=== PATIENT | female | born 1965 | race Caucasian/White ===

== ENCOUNTER → 2017-05-01 | Outpatient (CLI) | payer OTHER ==
--- NOTE | 2017-05-01 15:45 | KCIC ---
Bilateral digital screening mammogram History: 51-year-old female presents for baseline screening mammogram. Comparison: None, baseline exam. Findings: Breast Tissue Density A : The breasts are almost entirely fatty. Bilateral digital mammogram images are obtained with CAD. A round, low-density masses seen within the lateral right breast at mid depth, not definitively seen on the MLO view. Subcentimeter, round and oval, low-density masses are seen within the central/3:00 position and upper outer quadrant of the left breast at mid depth. While these may represent intramammary lymph nodes, further evaluation is warranted given lack of a comparison. Otherwise, no suspicious masses, architectural distortion, or grouped microcalcifications are identified. Impression: Recommend bilateral diagnostic mammography, with ultrasound as indicated, for further evaluation of bilateral, subcentimeter masses. BI-RADS Category 0: Incomplete: Need additional imaging evaluation. Electronically signed by: Gia Myers MD (05/01/2017 3:42 PM) [facility]
== END | disposition home or self-care (01) ==
LOC: KCIC MAMMO 13:48
PROVIDERS: ATTEND Family Medicine
DX: Z12.31 Encounter for screening mammogram for malignant neoplasm of breast (principal)
CPT/HCPCS: G0202; 77067

== ENCOUNTER → 2017-05-22 | Outpatient (CLI) | payer OTHER ==
--- NOTE | 2017-05-22 11:17 | KCIC ---
DATE: May 22, 2017 EXAM: DIGITAL DIAGNOSTIC BILATERAL, BREAST BILATERAL HISTORY: Abnormal baseline screening study COMPARISON: May 01, 2017 TECHNIQUE: Spot compression CC and MLO views of each breast were obtained. Limited ultrasound of each breast was performed. FINDINGS: The breast parenchyma demonstrates scattered fibroglandular densities, category B. The 3 nodules noted on prior screening study, one in the outer right breast, one in the upper outer left breast, and one centrally in the left breast, are all persistent on compression views. Probable fatty notches are noted on these compression views. Ultrasound of each breast could not identify any of these probable lymph nodes. No worrisome mass or area of architectural distortion by ultrasound is apparent. IMPRESSION: Probably benign findings within each breast. BI-RADS CATEGORY: 3 PROBABLE BENIGN-SHORT TERM F/U RECOMMENDED FOLLOW-UP: 6M 6 MONTH FOLLOW-UP As the probable lymph nodes are not visible by ultrasound, 6 month follow-up will be diagnostic bilateral mammogram. PQRS compliance statement: Patient information was entered into a reminder system with a target due date for the next mammogram. Mammography is a sensitive method for finding small breast cancers, but it does not detect them all and is not a substitute for careful clinical examination. A negative mammogram does not negate a clinically suspicious finding and should not result in delay in biopsying a clinically suspicious abnormality. "Our facility is accredited by the [employer] Mammography [employer]."
== END | disposition home or self-care (01) ==
LOC: KCIC MAMMO 09:42
PROVIDERS: ATTEND Family Medicine
DX: R92.8 Other abnormal and inconclusive findings on diagnostic imaging of breast (principal)
CPT/HCPCS: 76641; G0204; 77066

== ENCOUNTER → 2018-05-09 | Outpatient (CLI) | payer OTHER ==
--- NOTE | 2018-05-09 17:16 | KCIC ---
Bilateral diagnostic digital mammograms: Reason for examination: Follow-up nodules. Comparison is made to previous studies dated 05/22/2017 and 05/01/2017. Interpretation was made with the benefit of CAD. The skin and nipples show no abnormalities. No abnormal axillary lymph nodes are seen. The breast parenchyma shows scattered fibroglandular density. (Breast density: Category B.) There continue to be small nodular parenchymal densities bilaterally which are unchanged. There are no new dominant masses, suspicious calcifications or architectural distortions. Impression: Continued presence of small nodular densities bilaterally without change. Ultrasound to follow. BI-RADS Category 0: Incomplete. Needs additional imaging evaluation. Left breast ultrasound: Comparison is made to previous study dated 05/22/2017. Ultrasound examination of the left breast was performed with attention to the areas of mammographic concern and the left axilla. No discrete cystic or solid nodules are identified. No abnormal appearing lymph nodes are seen in the axilla. IMPRESSION: No focal lesions seen in the left breast. Recommend routine mammographic follow-up. BI-RADS Category 2: Benign. "Our facility is accredited by the [employer] Mammography Program." This patient's information has been entered into a reminder system for the patient to be notified with the results of her examination and a target date for the next mammogram. Electronically signed by: Aubree Fraga MD (05/09/2018 5:12 PM) [facility]
== END | disposition home or self-care (01) ==
LOC: KCIC MAMMO 12:35
PROVIDERS: ATTEND Family Medicine
DX: R92.8 Other abnormal and inconclusive findings on diagnostic imaging of breast (principal)
CPT/HCPCS: 76641; 77066

== ENCOUNTER → 2019-09-19 | Outpatient (CLI) | payer OTHER ==
--- NOTE | 2019-09-19 13:05 | KCIC ---
HIP RIGHT 2 VIEW History: Right hip pain for 3 or 4 months. No known injury.. No evidence of acute fracture. No aggressive bone destruction. Right hip joint spaces intact. Mild degenerative change may be present at the right sacroiliac joint. No significant soft tissue abnormality. IMPRESSION: No evidence of acute radiographic abnormality. Consider MR of the hip for further evaluation, as indicated. Electronically signed by: Bradly Clement MD (09/19/2019 1:02 PM) [facility]
== END ==
LOC: KCIC 12:30
PROVIDERS: ATTEND Family Medicine
DX: M25.551 Pain in right hip (principal)
CPT/HCPCS: 73502

== ENCOUNTER 2021-06-14 23:38 | Emergency (ER) | payer SELFPAY ==
[~2021-06-14] VITALS: Ht 160 cm; Wt 93.8 kg
--- NOTE | 2021-06-15 03:46 | PHYS DOC ---
General Adult EDM: Chief Complaint: COUGH HPI: HPI: Patient is a 55 year old female who presents here with multiple complaints. She reports malaise, myalgias, fatigue, dry cough with gagging, nausea, diarrhea. She denies chest pain. She reports mild dyspnea. She has had some subjective fevers and chills. She was diagnosed with COVID-19 infection within the last 6 days. She had had symptoms for about 3-4 days prior to that. Tonight, she reports increased fatigue and malaise, diffuse body aches, and noticed some significant hyperglycemia. Her glucometer at home read "high." She reports that she has been drinking water. She reports that she has been eating, though not as much as usual. She denies taking any pain medicine or antipyretics today. She has not been vaccinated against COVID-19. She reports that she was "planning on it" before she got sick. She admits that she has chronically poorly controlled diabetes, frequent episodes of significant hyperglycemia. She has failed multiple oral hypoglycemic agent regimens, and she is currently taking weekly Trulicity and Lantus. She has not been seen by an crushed stone grader. She reports that her last hemoglobin A1c was over 10, she believes. Review of Systems: Review of Systems: Constitutional: Fevers, chills, myalgias, malaise and fatigue Eyes: Denies change in visual acuity. [] HENT: Nasal congestion. Denies sore throat Respiratory: Dry cough, mild dyspnea. No hemoptysis, no dyspnea with exertion Cardiovascular: Denies chest pain or edema. [] GI: Denies abdominal pain, reports nausea, vomiting/gagging, reports diarrhea. : Denies dysuria, urgency, hematuria. She does report urinary frequency. Musculoskeletal: Denies back pain or joint pain. He does report diffuse myalg ias. Integument: Denies rash. [] Neurologic: She does report a headache. Denies dizziness, vertigo, focal weakness, numbness or tingling or syncope Endocrine: Polyuria symptoms, hyperglycemia] Lymphatic: Denies swollen glands. [] Psychiatric: Denies depression or anxiety. [] Heart Score: C/O Chest Pain: No Risk Factors: Risk Factors: DM, Current or recent (<one month) smoker, HTN, HLP, family history of CAD, obesity. Risk Scores: Score 0 - 3: 2.5% MACE over next 6 weeks - Discharge Home Score 4 - 6: 20.3% MACE over next 6 weeks - Admit for Clinical Observation Score 7 - 10: 72.7% MACE over next 6 weeks - Early Invasive Strategies Physical Exam: PE: Constitutional: Well developed, well nourished, no acute distress, non-toxic appearance. [] HENT: Normocephalic, atraumatic, oropharynx is patent and clear, mucous membranes are moist Eyes: Sclera are clear and anicteric Neck: Normal range of motion, no tenderness, supple, no stridor. Trachea is midline, no meningismus Cardiovascular: Tachycardic, regular, rate 110s, +2 radial and +2 posterior tibial pulses bilaterally Lungs & Thorax: Bilateral breath sounds clear to auscultation [] Abdomen: Abdomen is soft, nondistended, nontender to palpation, normal bowel sounds, no palpable masses organomegaly, no CVA tenderness Skin: Warm, dry, no erythema, no rash. [] Back: No tenderness, no CVA tenderness. [] Extremities: No tenderness, no cyanosis, no clubbing, ROM intact, no edema. No calf tenderness Neurologic: She is awake, alert, conversant, no facial asymmetry, normal motor strength, ambulatory with a steady gait, speech is clear and fluent Psychologic: Affect normal, judgement normal, mood normal. She is pleasant and cooperative. EKG: EKG: EKG is interpreted at 0535 Rhythm is sinus tachycardia Rate is 108 bpm [place] is normal No STEMI Radiology/Procedures: Radiology/Procedures: IMAGING REPORT Signed PATIENT: LUCAS CHATMAN MACCOUNT: [id number] : 06/22/1955 LOCATION: ER AGE: 65 SEX: F EXAM STATUS: REG ER ORD. PHYSICIAN: GALE DYKES DO REASON: covid, cough, vomiting PROCEDURE: PORTABLE CHEST 1V EXAM: AP View of the chest DATE: 06/15/2021 3:51 AM INDICATION: Reason: covid, cough, vomiting / Spl. Instructions: / History: COMPARISON: No Prior FINDINGS: The heart is not enlarged. Mediastinal and hilar contours are normal. Patchy opacities peripheral left lower lung. No pleural effusion or pneumothorax. IMPRESSION: Patchy opacities peripheral left lower lung, likely consolidative process or atelectasis. Electronically signed by: Alec Shah MD (06/15/2021 4:28 AM) [facility] DI[facility] and SIGNED BY: ALEC SHAH MD DATE: 06/15/21 [id number] Course & Med Decision Making: Course & Med Decision Making Pertinent Labs and Imaging studies reviewed. (See chart for details) The patient is given 2 L of IV normal saline. She is given subcutaneous regular insulin. Her blood sugar is now down to 372. She is given Zofran for nausea. She is given Toradol for her chronic lower extremity pain. She is resting very comfortably. Vital signs are stable. She manifests no evidence of distress or hypoxia. Her nausea and vomiting is now resolved. She is able to tolerate oral fluids without difficulty. I have discussed all of the findings, differential diagnosis and plan of care with her. She manifests no evidence of hypoxia, she has evidence of very mild Covid pneumonitis, no indication for admission or hospitalization based on current clinical presentation. I discussed home care instructions. She is to stay well-hydrated, drink plenty of fluids. I prescribed antiemetics for her for nausea and vomiting control. I told her to contact her PCP for routine care and follow-up. I encouraged compliance with her ADA diet and medications. Strict return precautions are given. She verbalizes understanding. Kwame Disclaimer: Kwame Disclaimer: This electronic medical record was generated, in whole or in part, using a voice recognition dictation system. Departure Departure Impression: Primary Impression: Hyperglycemia Additional Impressions: Nausea and vomiting COVID-19 Disposition: HOME / SELF CARE / HOMELESS Condition: STABLE Referrals: TAMY CHACON MD (PCP) Patient Instructions: Hyperglycemia, Nausea and Vomiting Additional Instructions: Take the prescription medication as needed/as directed. Eat a bland diet. Make sure adhere to an [employer] diet, avoid sugary drinks or starchy carbs. Return to the ER for chest pain, severe shortness of breath, if you develop oxygen levels which are consistently below 90% on room air, if you develop uncontrolled vomiting, dehydration, abdominal pain, focal weakness, if you are acutely injured or for any other concerns. Make sure you take your prescription medication as directed by your doctor. You may wish to consider outpatient endocrinology consultation given your chronically uncontrolled diabetes issues. You have been tested for or diagnosed with COVID-19. It is an infection caused by a new type of coronavirus. COVID-19 will cause cold-like or mild flu symptoms in most. It can cause more severe symptoms like problems breathing in some. There is no treatment for COVID-19. The body will clear the infection over time. Self-care will help to ease discomfort. Steps to Take: Self-Care Rest as needed. Healthy habits may help you feel better. Steps include: Choose healthy foods including fruits and vegetables. Drink water throughout the day. Get plenty of sleep each night. If you smoke, try to quit. It may ease breathing. Avoid alcohol. Keep Others Healthy The virus can spread to others. Droplets are released every time you sneeze or cough. The droplets can get into the mouth, nose, or eyes of people near you and lead to infection. To lower the chances of spreading COVID-19 to others: Stay at home until your doctor has said it is safe to leave. If you tested positive this will mean staying isolated until both of the following are true: At least 7 days have passed since the start of illness. You are free of fever for at least 72 hours without the use of medicine. During this time: - Avoid public areas, events, or transportation. Do not return to work or school until your doctor has said it is safe to do so. - Call ahead if you need to go to a medical center. Let them know you may have COVID-19. It will help them guide you where to go. They may also ask you to wear a facemask when you come to the office. - If you call for emergency medical services, let them know you may have COVID- 19. While at home: - Try to avoid close contact with others. Stay about 6 feet away. - If possible, spend most of your time in a separate room from others. - Use a face mask if you will be in close contact with others such as sharing a room or vehicle. - Have someone wipe down common surfaces in the home. Use household pricing director every day on areas like doorknobs, counters, or sinks. - Cough or sneeze into a tissue. Throw the tissue away right after use. If a tissue is not available, cough or sneeze into your elbow. - Wash your hands often. Wash them after sneezing or coughing. Use soap and w ater and wash for at least 20 seconds. Alcohol based hand cleaner signs can be used if soap and water is not available. - Do not prepare food for others. Avoid sharing personal items like forks, spoons, or toothbrushes. - Avoid close contact with pets while you are sick. There is no evidence of the virus passing to pets. This is a safety step until more is known about this virus. Isolation can be frustrating. Social interaction can help. Keep in touch with friends and family through phone and tech options. You can still interact with others in your home, just keep a safe distance of about 6 feet. Follow-up: Your doctors office will check in with you to see if there are any changes in your health. You may be asked to keep track of symptoms to share with them. They will also let you know when you are clear to be in public again. Problems to Look Out For: Contact your doctor if your recovery is not going as you expect. Get emergency care if you have problems such as: - Trouble breathing - Nonstop chest pain or pressure - Changes in awareness, confusion, or problems waking - Lips or face have bluish color - Worsening of symptoms If you think you have an emergency, call for emergency medical services right away. As taken from [facility] Benzonatate (BENZONATATE) 200 Mg Capsule 1 CAP PO PRN TID PRN for cough, #20 CAP 0 Refills Prov: GALE DYKES DO 06/15/21 Ondansetron Hcl (ONDANSETRON HCL) 4 Mg Tablet 1 TAB PO PRN Q6HRS for vomiting, #30 TAB 1 Refill Prov: GALE DYKES DO 06/15/21 GALE DYKES DO Jun 15, 2021 03:46
[2021-06-15 04:19] LABS: BILIRUBIN,URINE NEGATIVE (NEG); CLARITY,URINE CLEAR; COLOR,URINE YELLOW; NITRITE,URINE NEGATIVE (NEG); PH,URINE 5.5 (<5.0-8.0); PROTEIN,URINE NEGATIVE (NEG-TRACE); UROBILINOGEN,URINE 0.2 mg/dL (0.2 mg/dL)
--- NOTE | 2021-06-15 04:30 | RAD ---
EXAM: AP View of the chest DATE: 06/15/2021 3:51 AM INDICATION: Reason: covid, cough, vomiting / Spl. Instructions: / History: COMPARISON: No Prior FINDINGS: The heart is not enlarged. Mediastinal and hilar contours are normal. Patchy opacities peripheral left lower lung. No pleural effusion or pneumothorax. IMPRESSION: Patchy opacities peripheral left lower lung, likely consolidative process or atelectasis. Electronically signed by: Alec Shah MD (06/15/2021 4:28 AM) [facility]
[2021-06-15 04:31] LABS: BACTERIA,URINE 0 /HPF (0-FEW); RBC,URINE RARE /HPF (0-2); WBC,URINE 0 /HPF (0-4)
[2021-06-15 04:32] LABS: BASO % 0 % (0-3); EOS % 0 % (0-3); HEMATOCRIT 41.4 % (36.0-47.0); HEMOGLOBIN 14.7 g/dL (12.0-15.5); LYMPH # 1.5 x10^3/uL (1.0-4.8); LYMPH % 36 % (24-48); MEAN CORPUSCULAR HEMOGLOBIN 28 pg (25-35); MEAN CORPUSCULAR HGB CONC 36 g/dL (31-37); MEAN CORPUSCULAR VOLUME 79 fL (79-100); MONO # 0.5 x10^3/uL (0.0-1.1); MONO % 12 % (0-9); NEUT # 2.1 x10^3/uL (1.8-7.7); NEUT % 52 % (31-73); PLATELET COUNT 183 x10^3/uL (140-400); RED BLOOD COUNT 5.28 x10^6/uL (3.50-5.40); RED CELL DISTRIBUTION WIDTH 12.8 % (11.5-14.5); WHITE BLOOD COUNT 4.1 x10^3/uL (4.0-11.0)
[2021-06-15 04:51] LABS: ALBUMIN 3.6 g/dL (3.4-5.0); ALBUMIN/GLOBULIN RATIO 0.8 (1.0-1.7); CALCIUM 8.5 mg/dL (8.5-10.1); GFR 55.6; POTASSIUM 4.1 mmol/L (3.5-5.1); TOTAL BILIRUBIN 0.4 mg/dL (0.2-1.0); TOTAL PROTEIN 8.4 g/dL (6.4-8.2)
[2021-06-15] MEDS: IV NORMAL SALINE 1000ML BAG 1,000 ML IV ONE ×2 (04:59→05:51)
[2021-06-15] MEDS: ONDANSETRON PF 4 MG/2 ML VIAL. IVP ONE (04:59)
[2021-06-15] MEDS: INSULIN REGULAR 100 UNIT/ML 3ML VIAL. SQ ONE (05:45)
[2021-06-15 07:41] VITALS: BP 145/80
[2021-06-15] MEDS ORDERED: BENZ200C47 PO (07:50)
[2021-06-15] MEDS ORDERED: ONDA-84 PO (07:50)
[2021-06-15] MEDS: KETOROLAC 15 MG/ML VIAL. IVP ONE (08:04)
== END 2021-06-15 08:08 | disposition home or self-care (01) ==
LOC: EDBD 23:38 → ER 23:38 → MERGE 23:38 → ER 06-15 08:08
DX: U07.1 COVID-19 (principal); E11.65 Type 2 diabetes mellitus with hyperglycemia; R11.2 Nausea with vomiting, unspecified
CPT/HCPCS: 36415; 71045; 80053; 81001; 82962; 83690; 83735; 85025; 96361; 96372; 96374; 96375; 99285; J1815; J1885; J2405; J7030